=== PATIENT | male | born 1995 | race Caucasian/White ===

== ENCOUNTER 2023-12-15 21:28 | Observation (INO) | payer SELFPAY ==
[~2023-12-15] VITALS: Ht 175.3 cm; Wt 68.2 kg
[2023-12-15] MEDS ORDERED: NS 1,000 ML IV ONE ×2 (22:45→23:45)
[2023-12-15] MEDS ORDERED: Ketorolac 30 MG/ML VIAL IV ONE (22:45)
[2023-12-15 23:18] LABS: BASO # 0.1 K/mm3 (0.0-0.2); BASO % 0.3 % (0.0-2.0); GRAN # 18.7 K/mm3 (1.4-6.5); GRAN % 83.9 % (42.2-75.2); HEMATOCRIT 45.2 % (42.0-52.0); HEMOGLOBIN 14.8 g/dl (13.5-18.0); LYMPH # 2.2 K/mm3 (1.2-3.4); MEAN CELL VOLUME 88 fl (80.0-100.0); MEAN CORPUSCULAR HEMOGLOBIN 29 pg (27-31); MEAN CORPUSCULAR HGB CONC 33 g/dl (33.0-37.0); MEAN PLATELET VOLUME 9.2 fl (7.4-10.4); MONO # 1.2 K/mm3 (0.1-0.6); MONO % 5.3 % (1.7-9.3); PLATELET COUNT 301 K/mm3 (130-400); RED BLOOD COUNT 5.13 M/mm3 (4.20-5.60); REDCELL DISTRIBUTION WIDTH-CV 13.9 % (11.5-14.5)
[2023-12-15 23:37] LABS: ALBUMIN 4.4 gm/dL (3.5-5.0); BILIRUBIN,TOTAL 0.7 mg/dL (0.2-1.2); CALCIUM 10.3 mg/dL (8.4-10.2); CREATININE, serum 1.35 mg/dL (0.72-1.25); MAGNESIUM 1.8 mg/dL (1.6-2.6); POTASSIUM 3.7 mmol/L (3.5-4.5); TOTAL PROTEIN 7.8 gm/dL (6.2-8.1)
[2023-12-16] MEDS ORDERED: Iohexol 300 - 100 ML VIAL IV ONE (00:02)
[2023-12-16 01:07] LABS: PH 8.5 (5.0-8.5); URINE APPEARANCE TURBID (CLEAR/HAZY); URINE BLOOD 1+ (NEGATIVE); URINE COLOR YELLOW (YELLOW); URINE GLUCOSE NEGATIVE (NEGATIVE); URINE KETONE 2+ (NEGATIVE); URINE NITRATE NEGATIVE (NEGATIVE); URINE PROTEIN(semi-quant) TRACE (NEGATIVE)
[2023-12-16 01:10] LABS: COLLECTION METHOD CLEAN CATCH
[2023-12-16] MEDS ORDERED: fentaNYL 50 MCG/ML 2 ML VIAL IV ONE (01:15)
[2023-12-16] MEDS ORDERED: fentaNYL 50 MCG/ML 2 ML VIAL IV PRN ×2 (02:00→08:30)
[2023-12-16] MEDS ORDERED: Ondansetron 4 MG/2 ML VIAL IV PRN ×2 (02:00→08:30)
[2023-12-16] MEDS ORDERED: NS 1,000 ML IV SCH (02:00)
[2023-12-16] MEDS ORDERED: Ketorolac 15 MG/ML VIAL IV SCH (02:00)
[2023-12-16] MEDS ORDERED: HYDROmorphone 0.5 MG/0.5 ML SYRINGE IV PRN (02:15)
[2023-12-16] MEDS ORDERED: ADDERALL20 MG PO (02:34)
[2023-12-16] MEDS ORDERED: PROZAC 20MG20 MG PO (02:34)
[2023-12-16 03:09] VITALS: BP 125/75; PULSE 61; TEMP 98.1
--- NOTE | 2023-12-16 03:17 | NUR ---
Patient arrived to the floor from ED at 0235, A/Ox4, admission assessment and intake done, medrec reviewed, reports pain is at 2/10, instructed to be on NPO, will continue to strain urine, denies further needs, call light and personal item within reach, will continue to monitor.
--- NOTE | 2023-12-16 04:45 | NUR ---
Patient reports he just had an emesis and it was greenish with blood streak, IV zofran given. Voided 80ml of urine, no stones noted, will monitor.
--- NOTE | 2023-12-16 07:40 | NUR ---
PATIENT RESTING IN BED UPON ENTERING ROOM. SHIFT ASSESSMENT COMPLETED. IVF INFUSING. PATIENT REQUESTING PAIN MEDICATION FOR 6/10 PAIN TO L FLANK AND ABDOMEN. PRN MEDICATION GIVEN PER eMAR. PATIENT FEELS LIKE HE COULD HAVE A BOWEL MOVEMENT BUT IS AFRAID TO STRAIN DUE TO PAIN. PATIENT UPDATED ON POC, CALL LIGHT WITHIN REACH. CONTINUING TO MONITOR.
[2023-12-16 07:46] VITALS: BP 131/73; PULSE 63; TEMP 97.8
[2023-12-16] MEDS ORDERED: Iohexol 350 - 100 ML VIAL URETER-R ONE (08:15)
[2023-12-16] MEDS ORDERED: Lidocaine 2% (20 MG/ML) 20 ML UROJET UR ONE ×2 (08:15→09:12)
[2023-12-16] MEDS ORDERED: hydrALAZINE 20 MG/ML 1 ML VIAL IV PRN (08:30)
[2023-12-16] MEDS ORDERED: Promethazine 25 MG/ML 1 ML VIAL IV PRN (08:30)
[2023-12-16] MEDS ORDERED: Meperidine 50 MG/ML 1 ML VIAL IV PRN (08:30)
[2023-12-16] MEDS ORDERED: droPERidol 2.5 MG/ML 2 ML VIAL IV PRN (08:30)
[2023-12-16] MEDS ORDERED: HYDROmorphone 2 MG/1 ML VIAL IV PRN (08:30)
[2023-12-16] MEDS ORDERED: Ondansetron 4 MG/2 ML VIAL ONE (08:36)
[2023-12-16] MEDS ORDERED: NS 10 ML IV ONE (08:36)
[2023-12-16] MEDS ORDERED: Ketorolac 30 MG/ML VIAL ONE (08:36)
[2023-12-16] MEDS ORDERED: fentaNYL 50 MCG/ML 2 ML VIAL ONE (08:36)
[2023-12-16] MEDS ORDERED: dexAMETHasone 10 MG/ML VIAL ONE (08:36)
[2023-12-16] MEDS ORDERED: Lidocaine PF 2% (20 MG/ML) 5 ML VIAL ONE (08:36)
--- NOTE | 2023-12-16 08:43 | NUR ---
PATIENT OFF UNIT FOR PROCEDURE AT THIS TIME.
[2023-12-16] MEDS ORDERED: Ketorolac 15 MG/ML VIAL IV PRN (09:30)
[2023-12-16] MEDS ORDERED: oxyCODONE/Acetaminophen 5-325 MG TAB PO PRN (09:30)
[2023-12-16] MEDS ORDERED: Hyoscyamine 0.125 MG Sublingual TAB SL PRN (09:30)
[2023-12-16] MEDS ORDERED: PERCOCET 325 MG1 TA2 PO (09:31)
[2023-12-16] MEDS ORDERED: FLOMAX 0.40.4 MG/CAP PO (09:31)
[2023-12-16 09:55] VITALS: BP 96/56; PULSE 80
[2023-12-16 10:03] VITALS: TEMP 97.3
--- NOTE | 2023-12-16 10:21 | NUR ---
PATIENT UPDATED ON PLAN OF CARE. STATES HE HAS NO PAIN AT THIS TIME. POST OP VITALS STABLE. WILL CONTINUE TO MONITOR.
[2023-12-16 10:45] VITALS: BP 116/66; PULSE 77
--- NOTE | 2023-12-16 10:55 | NUR ---
PATIENT ABLE TO EAT, DRINK, AND URINATE WITH NO ISSUES. PATIENT DOES REPORT SOME BLOOD AND BURNING DURING URINATION, THIS RN INFORMED PATIENT HE CAN TAKE [id number] AZO IF BURNING CONTINUES. IV DISCONTINUED. DISCHARGE INSTRUCTIONS REVIEWED, ALL QUESTIONS ANSWERED. PATIENT IS WAITING FOR A FRIEND TO ARRIVE TO DRIVE HIM HOME.
--- NOTE | 2023-12-16 11:37 | NUR ---
PATIENT ESCORTED OFF OF UNIT BY VIA [facility] STAFF.
== END 2023-12-16 11:38 | disposition home or self-care (01) ==
LOC: COL.ER 21:28 → SURG 12-16 01:12
PROVIDERS: Internal Medicine; ADMIT Urology
DX: N13.2 Hydronephrosis with renal and ureteral calculous obstruction (principal); E86.0 Dehydration
CPT/HCPCS: C1769; C2617; G0378; J0690; J1100; J1170; J1885; J2405; J2543; J2704; J3010; J7030; Q9967